=== PATIENT | female | born 1945 | race Caucasian/White ===

== ENCOUNTER 2017-09-04 18:28 | Emergency (ER) | payer OTHER ==
[~2017-09-04] VITALS: Ht 149.9 cm; Wt 52.2 kg
[2017-09-04 18:40] VITALS: BP 106/61
== END 2017-09-04 23:29 | disposition left against medical advice (07) ==
LOC: ER 18:28
DX: S61.206D Unspecified open wound of right little finger without damage to nail, subsequent encounter (principal); Z53.21 Procedure and treatment not carried out due to patient leaving prior to being seen by health care provider; X58.XXXD Exposure to other specified factors, subsequent encounter

== ENCOUNTER 2017-10-17 13:10 | Inpatient (IN) | payer OTHER ==
[~2017-10-17] VITALS: Ht 160 cm; Wt 73.0 kg
[2017-10-17] MEDS ORDERED: SODIUM CHLORIDE 0.9% 1,000 ML IV ONE ×2 (13:17)
[2017-10-17] MEDS ORDERED: NALOXONE HCL 0.4 MG/ML VIAL ONE (13:48)
[2017-10-17] MEDS ORDERED: NALOXONE HCL 0.4 MG/ML VIAL IV ONE (14:00)
[2017-10-17 14:19] LABS: Basophils # (auto) 0 uL; Basophils % (auto) 0.5 % (0.0-2.0); Eosinophils # (auto) 0.1 uL; Hematocrit 34.8 % (36.0-46.0); Hemoglobin 11.4 g/dL (12.2-16.2); Lymphocytes # (auto) 2.1 uL; Lymphocytes % (auto) 31.3 % (10.0-50.0); Mean Corpuscular Hemoglobin 29.5 pg (28.0-32.0); Mean Corpuscular Hgb Conc. 32.8 g/dL (32.0-36.0); Monocytes # (auto) 0.6 uL; Monocytes % (auto) 9.6 % (0.0-12.0); Neutrophils # (auto) 3.9 uL; Neutrophils % (auto) 57.6 % (37.0-80.0); Platelet Count (auto) 182 10^3/uL (140-450); Red Blood Cells 3.87 10^6/uL (4.0-5.20); Red Cell Distribution Width 14.6 % (11.8-14.3); White Blood Cell 6.7 10^3/uL (4.4-10.8)
[2017-10-17 14:39] LABS: INR 0.99 (0.9-1.15); Partial Thromboplastin Time 26.1 sec (23.78-33.04); Prothrombin Time 10.6 sec (9.27-12.13)
[2017-10-17 14:50] LABS: Alanine Aminotransferase 35 U/L (13-56); Albumin 2.6 g/dL (3.4-5.0); Alkaline Phosphatase 98 U/L (45-117); Anion Gap 8 (5-15); Aspartate Aminotransferase 31 U/L (15-37); BUN/Creatinine Ratio 18.3; Bilirubin, Total 0.3 mg/dL (0.2-1.0); Blood Urea Nitrogen 17 mg/dL (7-18); Carbon Dioxide 25 mmol/L (21-32); Chloride 105 mmol/L (98-107); GFR African American 76 mL/min; GFR Non-African American 63 mL/min; Glucose 87 mg/dL (74-106); Sodium 138 mmol/L (136-145); Total Protein 5.4 g/dL (6.4-8.2)
[2017-10-17] MEDS ORDERED: IOHEXOL 350 MG/ML 100ML IJ ONE (15:20)
[2017-10-17] MEDS ORDERED: VANCOMYCIN PER PHARMACY 0 MG IV SCH (18:15)
[2017-10-17] MEDS ORDERED: NITROGLYCERIN 0.4 MG SL TAB SL PRN (18:15)
[2017-10-17] MEDS ORDERED: MORPHINE SULFATE 8mg/ml INJ SDV IV PRN (18:15)
[2017-10-17] MEDS ORDERED: SODIUM CHLORIDE 0.9% 1,000 ML IV SCH (18:15)
[2017-10-17] MEDS ORDERED: DOCUSATE SOD 100 MG CAP PO PRN (18:15)
[2017-10-17] MEDS ORDERED: cefTRIAXone 1GM/10ml IVPUSH 10 ML IV ONE (18:15)
[2017-10-17] MEDS ORDERED: ASPirin-EC 81 mg tab PO ONE (18:45)
[2017-10-17] MEDS ORDERED: cloNIDine HCL 0.1 MG TAB ONE (20:05)
[2017-10-17] MEDS: cloNIDine HCL 0.1 MG TAB PO PRN ×2 (20:10→23:23)
[2017-10-17] MEDS: FAMOTIDINE 20 MG TAB PO SCH (21:04)
[2017-10-17] MEDS ORDERED: ATORVASTATIN 20 MG TAB PO SCH (22:00)
[2017-10-17] MEDS: VANCOMYCIN 750 MG in D5W 5% 250 ML IV SCH (22:45)
[2017-10-18] MEDS: HYDROcodone-ACET 5/325MG TAB PO PRN ×2 (04:21→07:33)
[2017-10-18] MEDS: cloNIDine HCL 0.1 MG TAB PO PRN (04:37)
[2017-10-18 05:03] LABS: Basophils # (auto) 0 uL; Basophils % (auto) 0.7 % (0.0-2.0); Eosinophils # (auto) 0.1 uL; Eosinophils % (auto) 1.1 % (0.0-7.0); Hematocrit 34.8 % (36.0-46.0); Hemoglobin 11.8 g/dL (12.2-16.2); Lymphocytes % (auto) 29.2 % (10.0-50.0); Mean Corpuscular Hemoglobin 30.6 pg (28.0-32.0); Mean Corpuscular Hgb Conc. 33.8 g/dL (32.0-36.0); Mean Corpuscular Volume 90.5 fL (80.0-100.0); Monocytes # (auto) 0.7 uL; Monocytes % (auto) 10.6 % (0.0-12.0); Neutrophils % (auto) 58.4 % (37.0-80.0); Nucleated Red Blood Cells % 0.1 %; Platelet Count (auto) 145 10^3/uL (140-450); Red Blood Cells 3.85 10^6/uL (4.0-5.20); Red Cell Distribution Width 14.5 % (11.8-14.3); White Blood Cell 6.9 10^3/uL (4.4-10.8)
[2017-10-18 05:24] LABS: Albumin 2.7 g/dL (3.4-5.0); BUN/Creatinine Ratio 17.5; Bilirubin, Total 0.5 mg/dL (0.2-1.0); Calcium 7.9 mg/dL (8.5-10.1); Potassium 3.7 mmol/L (3.5-5.1); Total Protein 5.5 g/dL (6.4-8.2)
[2017-10-18] MEDS: ASPirin-EC 81 mg tab PO SCH (10:54)
[2017-10-18] MEDS: ACETAMINOPHEN 325 MG TAB PO PRN ×2 (10:54→15:07)
[2017-10-18] MEDS: FAMOTIDINE 20 MG TAB PO SCH (10:54)
[2017-10-18] MEDS: MULTIPLE VITAMIN TAB PO SCH (10:54)
[2017-10-18] MEDS: cefTRIAXone 1GM/10ml IVPUSH 10 ML IV SCH (10:54)
[2017-10-18] MEDS ORDERED: SUCCINYLCHOLINE CHLORIDE 20 MG/ML 10ML VIAL IV ONE (12:51)
[2017-10-18 14:02] LABS: Urine Bacteria FEW /hpf (None Seen); Urine Blood TRACE /uL (Negative); Urine Specific Gravity 1.026 (1.001-1.035); Urine WBC 2 /hpf (0 - 5)
[2017-10-18] MEDS ORDERED: CLOPIDOGREL BISULFATE 75 MG TAB PO ONE (16:15)
[2017-10-18] MEDS ORDERED: amLODIPine BESYLATE 5 MG TAB PO ONE (16:15)
[2017-10-18 17:00] VITALS: BP 116/64
[2017-10-18] MEDS ORDERED: METO-158 PO (17:39)
[2017-10-18] MEDS ORDERED: OXYC325T14 PO (17:39)
[2017-10-18] MEDS ORDERED: GABA300C11 GT (17:39)
[2017-10-18] MEDS ORDERED: POTA10TA34 PO (17:39)
[2017-10-18] MEDS: TEMAZEPAM 15 MG CAP PO PRN (21:19)
[2017-10-18] MEDS: GABAPENTIN 100 MG CAP PO SCH (21:19)
[2017-10-18] MEDS: VANCOMYCIN 750 MG in D5W 5% 250 ML IV SCH (21:20)
[2017-10-18] MEDS: oxyCODONE ER 10 MG TAB PO SCH (21:20)
[2017-10-18] MEDS: ATORVASTATIN 20 MG TAB PO SCH (21:21)
[2017-10-18 22:00] VITALS: BP 126/52
[2017-10-18] MEDS ORDERED: AML5T PO (22:47)
[2017-10-18] MEDS ORDERED: VALS160T53 PO (22:47)
[2017-10-18] MEDS ORDERED: CLOP75TA41 PO (22:47)
[2017-10-18] MEDS ORDERED: LEVO88TA4 PO (22:47)
[2017-10-19 04:42] VITALS: BP 119/59
[2017-10-19] MEDS: LEVOTHYROXINE SODIUM 88 MCG TAB PO SCH (06:33)
[2017-10-19 06:35] LABS: Basophils # (auto) 0 uL; Basophils % (auto) 0.7 % (0.0-2.0); Eosinophils # (auto) 0.2 uL; Eosinophils % (auto) 2.5 % (0.0-7.0); Hematocrit 38.6 % (36.0-46.0); Hemoglobin 13.1 g/dL (12.2-16.2); Lymphocytes # (auto) 1.9 uL; Lymphocytes % (auto) 26.8 % (10.0-50.0); Mean Corpuscular Hemoglobin 30.2 pg (28.0-32.0); Mean Corpuscular Volume 88.9 fL (80.0-100.0); Monocytes # (auto) 0.7 uL; Monocytes % (auto) 10.4 % (0.0-12.0); Neutrophils # (auto) 4.2 uL; Neutrophils % (auto) 59.6 % (37.0-80.0); Platelet Count (auto) 132 10^3/uL (140-450); Red Blood Cells 4.35 10^6/uL (4.0-5.20); Red Cell Distribution Width 14.1 % (11.8-14.3); White Blood Cell 7.1 10^3/uL (4.4-10.8)
[2017-10-19 06:56] LABS: Potassium 3.4 mmol/L (3.5-5.1)
[2017-10-19] MEDS: ONDANSETRON HCL 4 MG/2 ML VIAL IV PRN ×2 (07:03→19:37)
[2017-10-19 07:15] LABS: BUN/Creatinine Ratio 10.7; Bilirubin, Total 0.6 mg/dL (0.2-1.0); Total Protein 6.3 g/dL (6.4-8.2)
[2017-10-19 09:00] VITALS: BP 140/77
[2017-10-19] MEDS: cefTRIAXone 1GM/10ml IVPUSH 10 ML IV SCH (10:11)
[2017-10-19] MEDS: ASPirin-EC 81 mg tab PO SCH (10:12)
[2017-10-19] MEDS: MULTIPLE VITAMIN TAB PO SCH (10:12)
[2017-10-19] MEDS: amLODIPine BESYLATE 5 MG TAB PO SCH (10:13)
[2017-10-19] MEDS: oxyCODONE ER 10 MG TAB PO SCH ×2 (10:13→21:57)
[2017-10-19] MEDS: FAMOTIDINE 20 MG TAB PO SCH (10:13)
[2017-10-19] MEDS: CLOPIDOGREL BISULFATE 75 MG TAB PO SCH (10:13)
[2017-10-19] MEDS: GABAPENTIN 100 MG CAP PO SCH ×2 (10:13→21:57)
[2017-10-19 13:00] VITALS: BP 108/57
[2017-10-19 17:00] VITALS: BP 116/54
[2017-10-19] MEDS: VANCOMYCIN 750 MG in D5W 5% 250 ML IV SCH (21:56)
[2017-10-19] MEDS: ATORVASTATIN 20 MG TAB PO SCH (21:57)
[2017-10-19] MEDS: TEMAZEPAM 15 MG CAP PO PRN (21:57)
[2017-10-19 22:00] VITALS: BP 113/62
[2017-10-20 05:00] VITALS: BP 103/54
[2017-10-20] MEDS: LEVOTHYROXINE SODIUM 88 MCG TAB PO SCH (06:21)
[2017-10-20 09:00] VITALS: BP 127/56
[2017-10-20] MEDS: MULTIPLE VITAMIN TAB PO SCH (09:48)
[2017-10-20] MEDS: cefTRIAXone 1GM/10ml IVPUSH 10 ML IV SCH (09:48)
[2017-10-20] MEDS: amLODIPine BESYLATE 5 MG TAB PO SCH (09:49)
[2017-10-20] MEDS: ASPirin-EC 81 mg tab PO SCH (09:49)
[2017-10-20] MEDS: CLOPIDOGREL BISULFATE 75 MG TAB PO SCH (09:49)
[2017-10-20] MEDS: oxyCODONE ER 10 MG TAB PO SCH ×2 (09:50→21:56)
[2017-10-20] MEDS: GABAPENTIN 100 MG CAP PO SCH ×2 (09:50→21:55)
[2017-10-20] MEDS: FAMOTIDINE 20 MG TAB PO SCH (09:52)
[2017-10-20 13:00] VITALS: BP 105/72
[2017-10-20 17:00] VITALS: BP 163/80
[2017-10-20] MEDS: VANCOMYCIN 750 MG in D5W 5% 250 ML IV SCH (21:55)
[2017-10-20] MEDS: TEMAZEPAM 15 MG CAP PO PRN (21:56)
[2017-10-20] MEDS: ATORVASTATIN 20 MG TAB PO SCH (21:56)
[2017-10-20 22:00] VITALS: BP 104/66
[2017-10-21 05:00] VITALS: BP 125/65
[2017-10-21 06:08] LABS: Basophils # (auto) 0 uL; Basophils % (auto) 0.4 % (0.0-2.0); Eosinophils # (auto) 0.1 uL; Hematocrit 38.3 % (36.0-46.0); Hemoglobin 12.7 g/dL (12.2-16.2); Lymphocytes # (auto) 1.8 uL; Lymphocytes % (auto) 25.1 % (10.0-50.0); Mean Corpuscular Hemoglobin 29.8 pg (28.0-32.0); Mean Corpuscular Hgb Conc. 33.3 g/dL (32.0-36.0); Mean Corpuscular Volume 89.7 fL (80.0-100.0); Monocytes # (auto) 0.7 uL; Monocytes % (auto) 9.7 % (0.0-12.0); Neutrophils # (auto) 4.5 uL; Neutrophils % (auto) 62.8 % (37.0-80.0); Nucleated Red Blood Cells % 0.1 %; Platelet Count (auto) 90 10^3/uL (140-450); Red Blood Cells 4.27 10^6/uL (4.0-5.20); Red Cell Distribution Width 14.4 % (11.8-14.3); White Blood Cell 7.2 10^3/uL (4.4-10.8)
[2017-10-21 06:10] LABS: BUN/Creatinine Ratio 6.5; Calcium 8.6 mg/dL (8.5-10.1); Potassium 3.8 mmol/L (3.5-5.1)
[2017-10-21] MEDS: LEVOTHYROXINE SODIUM 88 MCG TAB PO SCH (06:13)
[2017-10-21 08:46] VITALS: BP 115/44
[2017-10-21] MEDS: amLODIPine BESYLATE 5 MG TAB PO SCH (10:00)
[2017-10-21] MEDS: cefTRIAXone 1GM/10ml IVPUSH 10 ML IV SCH (10:14)
[2017-10-21] MEDS: MULTIPLE VITAMIN TAB PO SCH (10:15)
[2017-10-21] MEDS: ASPirin-EC 81 mg tab PO SCH (10:15)
[2017-10-21] MEDS: GABAPENTIN 100 MG CAP PO SCH (10:15)
[2017-10-21] MEDS: CLOPIDOGREL BISULFATE 75 MG TAB PO SCH (10:15)
[2017-10-21] MEDS: FAMOTIDINE 20 MG TAB PO SCH (10:16)
[2017-10-21] MEDS: oxyCODONE ER 10 MG TAB PO SCH (10:28)
[2017-10-21 13:00] VITALS: BP 118/46
[2017-10-21 16:38] VITALS: BP 115/44
[2017-10-21 17:00] VITALS: BP 120/40
== END 2017-10-21 17:50 | disposition home or self-care (01) | DRG 917 ==
LOC: EDBD 13:10 → ER 13:15 → TELE 13:16 → TELE-EAST 10-18 16:47
PROVIDERS: ADMIT Internal Medicine; ATTEND Internal Medicine
DX: T44.7X2A Poisoning by beta-adrenoreceptor antagonists, intentional self-harm, initial encounter (principal); G93.41 Metabolic encephalopathy; E44.0 Moderate protein-calorie malnutrition; I95.9 Hypotension, unspecified; I74.3 Embolism and thrombosis of arteries of the lower extremities; I71.6 Thoracoabdominal aortic aneurysm, without rupture; D63.1 Anemia in chronic kidney disease; I65.22 Occlusion and stenosis of left carotid artery; R00.1 Bradycardia, unspecified; N18.2 Chronic kidney disease, stage 2 (mild); F17.200 Nicotine dependence, unspecified, uncomplicated; G89.29 Other chronic pain; I12.9 Hypertensive chronic kidney disease with stage 1 through stage 4 chronic kidney disease, or unspecified chronic kidney disease; I25.10 Atherosclerotic heart disease of native coronary artery without angina pectoris; K57.30 Diverticulosis of large intestine without perforation or abscess without bleeding; N20.0 Calculus of kidney; Z95.1 Presence of aortocoronary bypass graft; I70.90 Unspecified atherosclerosis; Y92.89 Other specified places as the place of occurrence of the external cause; Z68.28 Body mass index [BMI] 28.0-28.9, adult
CPT/HCPCS: 36415; 70450; 71045; 71260; 74176; 74177; 80048; 80053; 80202; 81001; 82962; 83880; 84484; 85025; 85610; 85730; 87040; 87086; 93005; 93306; 93886; 96361; 96374; 97116; 97163; 97530; J0330; J2405; J7060

== ENCOUNTER 2018-01-29 07:54 | Emergency (ER) | payer OTHER ==
[~2018-01-29] VITALS: Ht 149.9 cm; Wt 46.7 kg
[~2018-01-29 07:54] MED LIST: AML5T PO; CLOP75TA41 PO; GABA300C11 GT; LEVO88TA4 PO; METO-158 PO; OXYC325T14 PO; POTA1TAB61 PO; VALS160T53 PO
[2018-01-29 08:28] LABS: Basophils # (auto) 0 uL; Basophils % (auto) 0.3 % (0.0-2.0); Eosinophils # (auto) 0 uL; Eosinophils % (auto) 0.7 % (0.0-7.0); Hematocrit 46.3 % (36.0-46.0); Hemoglobin 15.6 g/dL (12.2-16.2); Lymphocytes # (auto) 1.8 uL; Lymphocytes % (auto) 23.5 % (10.0-50.0); Mean Corpuscular Hemoglobin 29.9 pg (28.0-32.0); Mean Corpuscular Hgb Conc. 33.6 g/dL (32.0-36.0); Mean Corpuscular Volume 89.1 fL (80.0-100.0); Monocytes # (auto) 0.4 uL; Monocytes % (auto) 4.9 % (0.0-12.0); Neutrophils # (auto) 5.3 uL; Neutrophils % (auto) 70.6 % (37.0-80.0); Nucleated Red Blood Cells % 0.1 %; Platelet Count (auto) 159 10^3/uL (140-450); Red Blood Cells 5.19 10^6/uL (4.0-5.20); White Blood Cell 7.5 10^3/uL (4.4-10.8)
[2018-01-29 08:54] LABS: Alanine Aminotransferase 37 U/L (13-56); Albumin 3.5 g/dL (3.4-5.0); Anion Gap 9 (5-15); Aspartate Aminotransferase 31 U/L (15-37); BUN/Creatinine Ratio 13.3; Blood Urea Nitrogen 15 mg/dL (7-18); Calcium 8.7 mg/dL (8.5-10.1); Carbon Dioxide 27 mmol/L (21-32); Chloride 104 mmol/L (98-107); GFR African American 61 mL/min; GFR Non-African American 50 mL/min; Glucose 143 mg/dL (74-106); Magnesium 2.3 mg/dL (1.6-2.6); Potassium 4.4 mmol/L (3.5-5.1); Sodium 140 mmol/L (136-145)
[2018-01-29 08:59] LABS: Alkaline Phosphatase 120 U/L (45-117); Bilirubin, Total 0.5 mg/dL (0.2-1.0); Total Protein 6.9 g/dL (6.4-8.2)
[2018-01-29] MEDS ORDERED: PROMETHAZINE HCL 25 MG/ML 1ML IV ONE (10:30)
[2018-01-29] MEDS ORDERED: MORPHINE SULF INJ 2 MG/ML SYRINGE 1ML IV ONE (10:30)
[2018-01-29] MEDS ORDERED: SODIUM CHLORIDE 0.9% 1,000 ML IV ONE (11:00)
[2018-01-29] MEDS ORDERED: IOHEXOL 300 MG/ML 100ML BOTTLE IJ ONE (11:16)
[2018-01-29] MEDS ORDERED: GASTROGRAFIN 30 ML SOL ONE (11:17)
[2018-01-29 13:11] LABS: Urine Bacteria FEW /hpf (None Seen); Urine Blood Negative /uL (Negative); Urine Specific Gravity 1.006 (1.001-1.035); Urine WBC 6 /hpf (0 - 5)
[2018-01-29 15:18] VITALS: BP 156/102
== END 2018-01-29 16:07 | disposition home or self-care (01) ==
LOC: ER 07:54
DX: N39.0 Urinary tract infection, site not specified (principal); R14.1 Gas pain; K43.2 Incisional hernia without obstruction or gangrene; I70.8 Atherosclerosis of other arteries; I10 Essential (primary) hypertension; E07.9 Disorder of thyroid, unspecified; F17.210 Nicotine dependence, cigarettes, uncomplicated; Z79.02 Long term (current) use of antithrombotics/antiplatelets; Z79.899 Other long term (current) drug therapy; Z90.49 Acquired absence of other specified parts of digestive tract
CPT/HCPCS: 36415; 74177; 80053; 81001; 83735; 84484; 85025; 93005; 96361; 96374; 96375; 99285; J2270; J2550; Q9963; Q9967

== ENCOUNTER 2018-03-14 06:43 | Inpatient (IN) | payer OTHER ==
[~2018-03-14] VITALS: Ht 149.9 cm; Wt 47.0 kg
[2018-03-14] MEDS ORDERED: GASTROGRAFIN 30 ML SOL ONE (07:36)
[2018-03-14 08:07] LABS: Basophils # (auto) 0 uL; Basophils % (auto) 0.1 % (0.0-2.0); Eosinophils # (auto) 0 uL; Eosinophils % (auto) 0.1 % (0.0-7.0); Hematocrit 44.1 % (36.0-46.0); Hemoglobin 15.5 g/dL (12.2-16.2); Lymphocytes # (auto) 1.3 uL; Lymphocytes % (auto) 11.3 % (10.0-50.0); Mean Corpuscular Hemoglobin 31.1 pg (28.0-32.0); Mean Corpuscular Hgb Conc. 35.1 g/dL (32.0-36.0); Mean Corpuscular Volume 88.5 fL (80.0-100.0); Monocytes # (auto) 0.6 uL; Neutrophils # (auto) 9.4 uL; Neutrophils % (auto) 83.5 % (37.0-80.0); Platelet Count (auto) 221 10^3/uL (140-450); Red Blood Cells 4.98 10^6/uL (4.0-5.20); Red Cell Distribution Width 14.3 % (11.8-14.3); White Blood Cell 11.2 10^3/uL (4.4-10.8)
[2018-03-14] MEDS ORDERED: PROMETHAZINE HCL 25 MG/ML 1ML IV ONE (08:15)
[2018-03-14] MEDS ORDERED: SODIUM CHLORIDE 0.9% 1,000 ML IV ONE (08:15)
[2018-03-14 08:16] LABS: Urine Bacteria FEW /hpf (None Seen); Urine Blood Negative /uL (Negative); Urine WBC 2 /hpf (0 - 5)
[2018-03-14 08:23] LABS: Partial Thromboplastin Time 26.8 sec (23.78-33.04); Prothrombin Time 10.7 sec (9.27-12.13)
[2018-03-14 08:27] LABS: Alanine Aminotransferase 57 U/L (13-56); Albumin 3.7 g/dL (3.4-5.0); Amylase 69 U/L (25-115); Anion Gap 15 (5-15); Aspartate Aminotransferase 41 U/L (15-37); BUN/Creatinine Ratio 12.8; Blood Urea Nitrogen 14 mg/dL (7-18); Calcium 8.5 mg/dL (8.5-10.1); Carbon Dioxide 23 mmol/L (21-32); Chloride 93 mmol/L (98-107); GFR African American 63 mL/min; GFR Non-African American 52 mL/min; Glucose 108 mg/dL (74-106); Lipase 226 U/L (73-393); Magnesium 2.2 mg/dL (1.6-2.6); Potassium 3.6 mmol/L (3.5-5.1); Sodium 131 mmol/L (136-145)
[2018-03-14 08:31] LABS: Alkaline Phosphatase 160 U/L (45-117); Bilirubin, Total 0.6 mg/dL (0.2-1.0); Total Protein 7.6 g/dL (6.4-8.2)
[2018-03-14] MEDS ORDERED: IOHEXOL 300 MG/ML 100ML BOTTLE IJ ONE (10:22)
[2018-03-14] MEDS ORDERED: cloNIDine HCL 0.1 MG TAB PO ONE (11:15)
[2018-03-14] MEDS ORDERED: PANTOPRAZOLE 40 MG/10 ML VIAL IV ONE (12:45)
[2018-03-14] MEDS ORDERED: cefTRIAXone 1GM/50ML D5W 50 ML IV ONE (13:00)
[2018-03-14] MEDS ORDERED: ONDANSETRON HCL 4 MG/2 ML VIAL IV PRN (13:00)
[2018-03-14] MEDS ORDERED: HYDROcodone-ACET 5/325MG TAB PO PRN (13:00)
[2018-03-14] MEDS ORDERED: NITROGLYCERIN 0.4 MG SL TAB SL PRN (13:00)
[2018-03-14] MEDS ORDERED: ACETAMINOPHEN 325 MG TAB PO PRN (13:00)
[2018-03-14] MEDS ORDERED: DOCUSATE SOD 100 MG CAP PO PRN (13:00)
[2018-03-14] MEDS ORDERED: MORPHINE SULFATE 4 MG/ML SYR/VIAL IV PRN ×2 (13:00)
[2018-03-14] MEDS ORDERED: TEMAZEPAM 15 MG CAP PO PRN (13:00)
[2018-03-14] MEDS: GABAPENTIN 300 MG CAP PO SCH ×2 (13:35→21:40)
[2018-03-14] MEDS: SODIUM CHLORIDE 0.9% 1,000 ML IV SCH (13:35)
[2018-03-14 16:00] VITALS: BP 134/67
[2018-03-14] MEDS ORDERED: cloNIDine HCL 0.1 MG TAB PO PRN (16:45)
[2018-03-14] MEDS ORDERED: INFLUENZA QUAD 2018-2019 0.5 ML SYRG IM ONE (18:45)
[2018-03-14 20:00] VITALS: BP 157/94
[2018-03-14] MEDS: FAMOTIDINE 20 MG TAB PO SCH (21:40)
[2018-03-14] MEDS: METOPROLOL TARTRATE 25 MG TAB PO SCH (21:41)
[2018-03-14 22:00] VITALS: BP 157/94
[2018-03-15 05:00] VITALS: BP 160/79
[2018-03-15] MEDS: SODIUM CHLORIDE 0.9% 1,000 ML IV SCH ×2 (05:52→21:51)
[2018-03-15 06:21] LABS: Basophils # (auto) 0 uL; Basophils % (auto) 0.4 % (0.0-2.0); Eosinophils # (auto) 0 uL; Eosinophils % (auto) 0.5 % (0.0-7.0); Hemoglobin 14.4 g/dL (12.2-16.2); Lymphocytes % (auto) 26.4 % (10.0-50.0); Mean Corpuscular Hemoglobin 31.2 pg (28.0-32.0); Mean Corpuscular Hgb Conc. 35.1 g/dL (32.0-36.0); Mean Corpuscular Volume 88.9 fL (80.0-100.0); Monocytes # (auto) 0.8 uL; Monocytes % (auto) 10.2 % (0.0-12.0); Neutrophils # (auto) 4.7 uL; Neutrophils % (auto) 62.5 % (37.0-80.0); Nucleated Red Blood Cells % 0.1 %; Platelet Count (auto) 171 10^3/uL (140-450); Red Blood Cells 4.61 10^6/uL (4.0-5.20); Red Cell Distribution Width 14.2 % (11.8-14.3); White Blood Cell 7.5 10^3/uL (4.4-10.8)
[2018-03-15 06:39] LABS: Albumin 3.1 g/dL (3.4-5.0); Anion Gap 11 (5-15); Blood Urea Nitrogen 13 mg/dL (7-18); Calcium 8.2 mg/dL (8.5-10.1); Carbon Dioxide 23 mmol/L (21-32); Chloride 102 mmol/L (98-107); Glucose 81 mg/dL (74-106); Potassium 3.7 mmol/L (3.5-5.1); Sodium 136 mmol/L (136-145)
[2018-03-15 06:41] LABS: Alanine Aminotransferase 57 U/L (13-56); Aspartate Aminotransferase 46 U/L (15-37); GFR African American 89 mL/min; GFR Non-African American 73 mL/min
[2018-03-15 06:44] LABS: Alkaline Phosphatase 127 U/L (45-117); Bilirubin, Total 0.6 mg/dL (0.2-1.0); Total Protein 6.4 g/dL (6.4-8.2)
[2018-03-15] MEDS: GABAPENTIN 300 MG CAP PO SCH ×3 (06:56→21:51)
[2018-03-15] MEDS: LEVOTHYROXINE SODIUM 88 MCG TAB PO SCH (06:56)
[2018-03-15 08:18] VITALS: BP 145/76
[2018-03-15] MEDS: PANTOPRAZOLE 40 MG/10 ML VIAL IV SCH (09:18)
[2018-03-15] MEDS: cefTRIAXone 1GM/50ML D5W 50 ML IV SCH (09:18)
[2018-03-15] MEDS: FAMOTIDINE 20 MG TAB PO SCH ×2 (09:19→21:51)
[2018-03-15] MEDS: MULTIPLE VITAMIN TAB PO SCH (09:19)
[2018-03-15] MEDS: POTASSIUM CHL 10 Meq TABLET PO SCH (09:19)
[2018-03-15] MEDS: CLOPIDOGREL BISULFATE 75 MG TAB PO SCH (09:19)
[2018-03-15] MEDS: amLODIPine BESYLATE 5 MG TAB PO SCH (09:20)
[2018-03-15] MEDS: METOPROLOL TARTRATE 25 MG TAB PO SCH ×2 (09:20→21:50)
[2018-03-15] MEDS: DIOVAN HCTZ PO SCH (09:56)
[2018-03-15 12:20] VITALS: BP 123/58
[2018-03-15 17:04] VITALS: BP 145/87
[2018-03-15 22:00] VITALS: BP 153/88
[2018-03-16 05:00] VITALS: BP 148/80
[2018-03-16 06:37] LABS: Basophils # (auto) 0 uL; Basophils % (auto) 0.6 % (0.0-2.0); Eosinophils # (auto) 0.1 uL; Eosinophils % (auto) 1.3 % (0.0-7.0); Hematocrit 44.9 % (36.0-46.0); Hemoglobin 15.3 g/dL (12.2-16.2); Lymphocytes # (auto) 1.9 uL; Lymphocytes % (auto) 25.5 % (10.0-50.0); Mean Corpuscular Hemoglobin 30.7 pg (28.0-32.0); Mean Corpuscular Hgb Conc. 34.1 g/dL (32.0-36.0); Mean Corpuscular Volume 90.2 fL (80.0-100.0); Monocytes # (auto) 0.7 uL; Monocytes % (auto) 9.9 % (0.0-12.0); Neutrophils # (auto) 4.6 uL; Neutrophils % (auto) 62.7 % (37.0-80.0); Nucleated Red Blood Cells % 0.2 %; Platelet Count (auto) 160 10^3/uL (140-450); Red Blood Cells 4.98 10^6/uL (4.0-5.20); Red Cell Distribution Width 14.4 % (11.8-14.3); White Blood Cell 7.3 10^3/uL (4.4-10.8)
[2018-03-16] MEDS: LEVOTHYROXINE SODIUM 88 MCG TAB PO SCH (06:39)
[2018-03-16] MEDS: GABAPENTIN 300 MG CAP PO SCH ×3 (06:39→21:29)
[2018-03-16 06:50] LABS: BUN/Creatinine Ratio 16.3; Calcium 8.4 mg/dL (8.5-10.1); Magnesium 2.4 mg/dL (1.6-2.6); Potassium 3.6 mmol/L (3.5-5.1)
[2018-03-16 08:18] VITALS: BP 160/85
[2018-03-16] MEDS: POTASSIUM CHL 10 Meq TABLET PO SCH (09:36)
[2018-03-16] MEDS: PANTOPRAZOLE 40 MG/10 ML VIAL IV SCH ×2 (09:36→21:28)
[2018-03-16] MEDS: cefTRIAXone 1GM/50ML D5W 50 ML IV SCH (09:36)
[2018-03-16] MEDS: DIOVAN HCTZ PO SCH (09:37)
[2018-03-16] MEDS: amLODIPine BESYLATE 5 MG TAB PO SCH (09:37)
[2018-03-16] MEDS: FAMOTIDINE 20 MG TAB PO SCH (09:37)
[2018-03-16] MEDS: MULTIPLE VITAMIN TAB PO SCH (09:37)
[2018-03-16] MEDS: METOPROLOL TARTRATE 25 MG TAB PO SCH ×2 (09:37→21:28)
[2018-03-16] MEDS: CLOPIDOGREL BISULFATE 75 MG TAB PO SCH (09:37)
[2018-03-16] MEDS ORDERED: amLODIPine BESYLATE 5 MG TAB PO ONE (10:45)
[2018-03-16 12:26] VITALS: BP 153/81
[2018-03-16] MEDS: SUCRALFATE 1 GM/10 ML ORAL SUSP PO SCH ×3 (12:36→21:28)
[2018-03-16] MEDS: LACTULOSE 20Gm/30ML SOLN PO PRN ×2 (14:04→20:20)
[2018-03-16] MEDS: SODIUM CHLORIDE 0.9% 1,000 ML IV SCH (15:28)
[2018-03-16] MEDS ORDERED: INFLUENZA QUAD 2018-2019 0.5 ML SYRG IM ONE (17:30)
[2018-03-16 17:35] VITALS: BP 123/70
[2018-03-16 22:00] VITALS: BP 149/82
[2018-03-17 05:00] VITALS: BP 146/80
[2018-03-17] MEDS: GABAPENTIN 300 MG CAP PO SCH (05:59)
[2018-03-17] MEDS: SUCRALFATE 1 GM/10 ML ORAL SUSP PO SCH ×2 (05:59→12:35)
[2018-03-17] MEDS: LEVOTHYROXINE SODIUM 88 MCG TAB PO SCH (05:59)
[2018-03-17 06:41] LABS: Basophils # (auto) 0 uL; Basophils % (auto) 0.6 % (0.0-2.0); Eosinophils # (auto) 0.1 uL; Eosinophils % (auto) 1.7 % (0.0-7.0); Hemoglobin 13.6 g/dL (12.2-16.2); Lymphocytes # (auto) 1.7 uL; Lymphocytes % (auto) 24.9 % (10.0-50.0); Mean Corpuscular Hemoglobin 30.5 pg (28.0-32.0); Mean Corpuscular Hgb Conc. 34.1 g/dL (32.0-36.0); Mean Corpuscular Volume 89.4 fL (80.0-100.0); Monocytes # (auto) 0.7 uL; Monocytes % (auto) 9.9 % (0.0-12.0); Neutrophils # (auto) 4.3 uL; Neutrophils % (auto) 62.9 % (37.0-80.0); Nucleated Red Blood Cells % 0.1 %; Platelet Count (auto) 140 10^3/uL (140-450); Red Blood Cells 4.47 10^6/uL (4.0-5.20); Red Cell Distribution Width 14.7 % (11.8-14.3); White Blood Cell 6.8 10^3/uL (4.4-10.8)
[2018-03-17 06:55] LABS: BUN/Creatinine Ratio 22.4; Calcium 8.2 mg/dL (8.5-10.1); Magnesium 2.3 mg/dL (1.6-2.6); Potassium 3.3 mmol/L (3.5-5.1)
[2018-03-17] MEDS ORDERED: EZ-GAS II GRANULES (RADIOLOGY USE) PO ONE (07:38)
[2018-03-17] MEDS ORDERED: EZ PAQUE SUSP 12OZ BTL ONE (07:39)
[2018-03-17] MEDS: SODIUM CHLORIDE 0.9% 1,000 ML IV SCH (08:21)
[2018-03-17] MEDS: METOPROLOL TARTRATE 25 MG TAB PO SCH (10:00)
[2018-03-17] MEDS: DIOVAN HCTZ PO SCH (10:00)
[2018-03-17] MEDS ORDERED: VALSARTAN HYDROCHLOROTHIAZIDE PO SCH (10:00)
[2018-03-17] MEDS ORDERED: amLODIPine BESYLATE 5 MG TAB PO SCH (10:00)
[2018-03-17] MEDS: MULTIPLE VITAMIN TAB PO SCH (10:32)
[2018-03-17] MEDS: CLOPIDOGREL BISULFATE 75 MG TAB PO SCH (10:32)
[2018-03-17] MEDS: PANTOPRAZOLE 40 MG/10 ML VIAL IV SCH (10:33)
[2018-03-17] MEDS: POTASSIUM CHL 10 Meq TABLET PO SCH (10:33)
[2018-03-17] MEDS: cefTRIAXone 1GM/50ML D5W 50 ML IV SCH (10:41)
[2018-03-17 10:56] VITALS: BP 158/94
[2018-03-17 12:10] VITALS: BP 158/94
== END 2018-03-17 12:54 | disposition home or self-care (01) | DRG 383 ==
LOC: ER 06:43 → TELE 06:44 → TELE-WESTW 16:08
PROVIDERS: ADMIT Internal Medicine; ATTEND Internal Medicine
DX: K27.9 Peptic ulcer, site unspecified, unspecified as acute or chronic, without hemorrhage or perforation (principal); I50.43 Acute on chronic combined systolic (congestive) and diastolic (congestive) heart failure; N39.0 Urinary tract infection, site not specified; E87.1 Hypo-osmolality and hyponatremia; I13.0 Hypertensive heart and chronic kidney disease with heart failure and stage 1 through stage 4 chronic kidney disease, or unspecified chronic kidney disease; K29.70 Gastritis, unspecified, without bleeding; N18.3 Chronic kidney disease, stage 3 (moderate); E03.9 Hypothyroidism, unspecified; I71.2 Thoracic aortic aneurysm, without rupture; I71.4 Abdominal aortic aneurysm, without rupture; G62.9 Polyneuropathy, unspecified; K59.00 Constipation, unspecified; I25.10 Atherosclerotic heart disease of native coronary artery without angina pectoris; I25.2 Old myocardial infarction; Z79.02 Long term (current) use of antithrombotics/antiplatelets; Z82.49 Family history of ischemic heart disease and other diseases of the circulatory system; Z86.73 Personal history of transient ischemic attack (TIA), and cerebral infarction without residual deficits; Z86.79 Personal history of other diseases of the circulatory system; Z95.1 Presence of aortocoronary bypass graft; Z90.49 Acquired absence of other specified parts of digestive tract
CPT/HCPCS: 36415; 71045; 74177; 74247; 80048; 80053; 81001; 82150; 83690; 83735; 83880; 84484; 85025; 85610; 85730; 87086; 90674; 93005; 96361; 96374; 97116; 97163; 97530; A6257; C9113; J0696

== ENCOUNTER 2018-04-11 08:13 | Emergency (ER) | payer OTHER ==
[~2018-04-11] VITALS: Ht 149.9 cm; Wt 46.7 kg
[~2018-04-11 08:13] MED LIST changes: -GABA300C11 GT
[2018-04-11] MEDS ORDERED: HYDROcodone-ACET 10/325MG TAB PO ONE (09:00)
[2018-04-11] MEDS ORDERED: SODIUM CHLORIDE 0.9% 500 ML IV ONE (09:15)
[2018-04-11 09:38] LABS: Basophils # (auto) 0 uL; Basophils % (auto) 0.6 % (0.0-2.0); Eosinophils # (auto) 0.1 uL; Eosinophils % (auto) 1.7 % (0.0-7.0); Hemoglobin 14.2 g/dL (12.2-16.2); Lymphocytes # (auto) 1.5 uL; Lymphocytes % (auto) 25.8 % (10.0-50.0); Mean Corpuscular Hgb Conc. 33.2 g/dL (32.0-36.0); Mean Corpuscular Volume 90.5 fL (80.0-100.0); Monocytes # (auto) 0.5 uL; Monocytes % (auto) 8.8 % (0.0-12.0); Neutrophils # (auto) 3.7 uL; Neutrophils % (auto) 63.1 % (37.0-80.0); Nucleated Red Blood Cells % 0.1 %; Platelet Count (auto) 156 10^3/uL (140-450); Red Blood Cells 4.74 10^6/uL (4.0-5.20); Red Cell Distribution Width 14.3 % (11.8-14.3); White Blood Cell 5.8 10^3/uL (4.4-10.8)
[2018-04-11 09:50] LABS: Albumin 3.2 g/dL (3.4-5.0); BUN/Creatinine Ratio 21.1; Calcium 8.2 mg/dL (8.5-10.1); Potassium 4.3 mmol/L (3.5-5.1)
[2018-04-11 09:54] LABS: Bilirubin, Total 0.4 mg/dL (0.2-1.0); Total Protein 6.7 g/dL (6.4-8.2)
[2018-04-11 10:03] LABS: Urine Bacteria FEW /hpf (None Seen); Urine Blood Negative /uL (Negative); Urine Specific Gravity 1.011 (1.001-1.035); Urine WBC 9 /hpf (0 - 5)
[2018-04-11 10:44] VITALS: BP 128/73
== END 2018-04-11 11:03 | disposition home or self-care (01) ==
LOC: ER 08:15
DX: S20.211A Contusion of right front wall of thorax, initial encounter (principal); I13.0 Hypertensive heart and chronic kidney disease with heart failure and stage 1 through stage 4 chronic kidney disease, or unspecified chronic kidney disease; N18.9 Chronic kidney disease, unspecified; I50.9 Heart failure, unspecified; E78.00 Pure hypercholesterolemia, unspecified; F17.210 Nicotine dependence, cigarettes, uncomplicated; Z90.49 Acquired absence of other specified parts of digestive tract; Z90.89 Acquired absence of other organs; Z79.01 Long term (current) use of anticoagulants; Z79.899 Other long term (current) drug therapy; W19.XXXA Unspecified fall, initial encounter; Y93.89 Activity, other specified; Y92.89 Other specified places as the place of occurrence of the external cause; Y99.8 Other external cause status
CPT/HCPCS: 36415; 71046; 80053; 81001; 85025; 93005

== ENCOUNTER 2018-08-16 09:51 | Emergency (ER) | payer OTHER ==
[~2018-08-16] VITALS: Ht 149.9 cm; Wt 52.2 kg
[~2018-08-16 09:51] MED LIST changes: +GABA100C PO; -OXYC325T14 PO; +PANT40TA2 PO; +SUCR1TAB38 OR; -VALS160T53 PO
[2018-08-16 11:10] LABS: Basophils # (auto) 0 uL; Basophils % (auto) 0.2 % (0.0-2.0); Eosinophils # (auto) 0.1 uL; Eosinophils % (auto) 0.5 % (0.0-7.0); Hematocrit 47.5 % (36.0-46.0); Hemoglobin 16.2 g/dL (12.2-16.2); Lymphocytes # (auto) 1.5 uL; Lymphocytes % (auto) 15.2 % (10.0-50.0); Mean Corpuscular Hgb Conc. 34.1 g/dL (32.0-36.0); Monocytes # (auto) 0.5 uL; Monocytes % (auto) 4.8 % (0.0-12.0); Neutrophils # (auto) 7.8 uL; Neutrophils % (auto) 79.3 % (37.0-80.0); Nucleated Red Blood Cells % 0.1 %; Platelet Count (auto) 215 10^3/uL (140-450); Red Cell Distribution Width 14.5 % (11.8-14.3); White Blood Cell 9.8 10^3/uL (4.4-10.8)
[2018-08-16 11:41] LABS: Albumin 3.3 g/dL (3.4-5.0); Anion Gap 7 (5-15); Blood Urea Nitrogen 46 mg/dL (7-18); Calcium 8.8 mg/dL (8.5-10.1); Carbon Dioxide 29 mmol/L (21-32); Chloride 101 mmol/L (98-107); Glucose 114 mg/dL (74-106); Potassium 3.5 mmol/L (3.5-5.1); Sodium 137 mmol/L (136-145)
[2018-08-16 11:47] LABS: Alanine Aminotransferase 29 U/L (13-56); Alkaline Phosphatase 151 U/L (45-117); Aspartate Aminotransferase 30 U/L (15-37); BUN/Creatinine Ratio 27.2; Bilirubin, Total 0.4 mg/dL (0.2-1.0); GFR African American 38 mL/min; GFR Non-African American 31 mL/min; Total Protein 7.6 g/dL (6.4-8.2)
[2018-08-16 15:23] VITALS: BP 147/89
== END 2018-08-16 15:26 | disposition home or self-care (01) ==
LOC: ER 09:51
DX: K44.9 Diaphragmatic hernia without obstruction or gangrene (principal); J44.9 Chronic obstructive pulmonary disease, unspecified; I13.0 Hypertensive heart and chronic kidney disease with heart failure and stage 1 through stage 4 chronic kidney disease, or unspecified chronic kidney disease; N18.9 Chronic kidney disease, unspecified; I50.9 Heart failure, unspecified; E78.5 Hyperlipidemia, unspecified; Z90.49 Acquired absence of other specified parts of digestive tract; Z94.0 Kidney transplant status; Z87.440 Personal history of urinary (tract) infections; Z87.891 Personal history of nicotine dependence
CPT/HCPCS: 36415; 71046; 74176; 80053; 84484; 85025; 93005